=== PATIENT | female | born 1975 | race Caucasian/White ===

== ENCOUNTER 2018-06-30 17:57 | Emergency (ER) | payer SELFPAY ==
[2018-06-30 17:58] VITALS: BP 163/93; PULSE 125; RESP 20; TEMP 36.9; O2SAT 97; BMI 45.3
[2018-06-30 18:07] VITALS: PULSE 119; RESP 18; O2SAT 98
--- NOTE | 2018-06-30 18:14 | ED.VIS.GEN ---
History of Present Illness Chief Complaint: Sore Throat Informant: Patient Onset: Days - Onset 4 days ago Context: Sudden Onset Timing: Continuous Quality: Pain Location: Right ear, right neck, Current Severity: Mild Maximum Severity: Severe Worsened by: Swallowing Relieved by: Nothing Associated Symptoms: And no documented fever nasal congestion and nonproductive cough Narrative: Patient is a 42-year-old woman who presents with sore throat, nasal congestion, right ear pain and cough that started 4 days ago. She has change in voice. She is able to swallow. There is been no drooling. She is able to open her mouth completely. She denies headache. She denies visual ocular or auditory symptoms. She denies leg pain, swelling discoloration. Prior similar symptoms: No Recent Illness/Hospitalization: No - Past Medical History (1) No significant past medical history Status: Acute Past Medical History - Allergies and Home Meds Allergies/Adverse Reactions: Allergies No Known Allergies Allergy (Verified 06/30/18 17:58) Primary Care Physician: Cristina Argueta MD [Primary Care Provider] - Prior records reviewed: Yes Surgical History: no surgical history Lives: Spouse/ Significant Other Smoking Status: Never smoker Alcohol: None Review of Systems General: Denies: Chills, Fever, Malaise, Subjective, Sweats Eyes: Denies: Visual changes - bilaterally, Blurred Vision - bilaterally, Diplopia ENT: Reports: Right ear pain, Rhinorrhea, Sore throat. Denies: Left ear pain Cardiovascular: Denies: Chest pain, Palpitations Respiratory: Reports: Cough. Denies: Dyspnea, Sputum, Dyspnea on exertion, Orthopnea, Paroxysmal nocturnal dyspnea Gastrointestinal: Denies: Abdominal pain, Nausea, Vomiting, Diarrhea, Melena, Hematochezia Musculoskeletal: Reports: Neck pain. Denies: Myalgias, Arthralgias, Back pain, Swelling Skin: Denies: Rash Neurological: Denies: Headache, Weakness Physical Exam Vital Signs/Narrative: Vital Signs Temp Pulse Resp BP Pulse Ox 06/30/18 18:07 119 H 18 98 06/30/18 17:58 98.4 F 125 H 20 H 163/93 H 97 Inital Vital Signs reviewed: Yes General: Well nourished, Well developed, No Acute Distress Head: Normocephalic, Atraumatic Eyes: Perrl, EOMI. Negative for: Pale conjunctiva, Scleral icterus, - ENT: Moist mucous membranes, No rhinorrhea, TM's clear Neck: Supple, Nontender, No lymphadenopathy, No JVD Cardiovascular: Regular rate, Regular rhythm, No murmurs, Normal S1, Normal S2 Respiratory: No distress, CTA bilaterally, Chest nontender Abdomen: Soft, Nontender, Nondistended, Normal bowel sounds Skin: Normal color, No rash Neurological: Alert, Oriented x3, Cranial nerves II-XII grossly intact, Normal Strength, Normal Sensation Psychological: Normal affect, Normal Mood Diagnostic/Tx/Re-eval - Medical Decision Making Centor score is 0. Patient history and physical consistent with acute viral laryngitis. Treatment is symptomatic. No testing is indicated or required. ED Disposition - Plan for ED Patient: Disposition: Home or Assisted Living Diagnosis: Acute viral laryngitis Instructions: ED Laryngitis Referrals: Cristina Argueta MD [Primary Care Provider] - 10-14 Days if not better
[2018-06-30 18:35] VITALS: RESP 16
--- NOTE | 2018-06-30 18:36 | ED.RN ---
REVIEWED D/C INSTRUCTIONS, FOLLOW UP CARE, AND S/S THAT WOULD WARRANT A RETURN TO THE ED WITH PT. PT VERBALIZED AN UNDERSTANDING AND DENIES FURTHER QUESTIONS FOR THIS RN. PT SKIN P/W/D, RESP EVEN AND UNLABORED, PT A&O X 3, NO DISTRESS NOTED. PT AMBULATED OUT OF ED, GAIT STEADY.
== END 2018-06-30 18:37 | disposition home or self-care (01) ==
LOC: ED 18:29
PROVIDERS: Emergency Provider Emergency Medicine; Family Provider Family Medicine; PCP Family Medicine
DX: J04.0 Acute laryngitis (principal)
CPT/HCPCS: 99282